=== PATIENT | female | born 1975 | race Hispanic/Latino ===

== ENCOUNTER 2017-03-31 05:25 | Inpatient (IN) | payer OTHER ==
--- NOTE | 2017-03-30 19:49 | HP ---
[address] [address] HISTORY AND PHYSICAL PATIENT: MIGUEL MOORE : 1975 MR#: [id number] ADMIT: 03/31/2017 JOB ID: [id number] The patient is a 41-year-old, G3, P2, AB zero woman followed prenatally at [facility], see record for details. She has now reached 39 weeks of gestation by day of admission. In setting of advanced maternal age, level two sonogram was obtained and demonstrated no anatomic abnormalities, and patient declined genetic screening. Note, that in setting of prior section, the patient weighed risks and benefits of trial of labor versus section and she definitively requested delivery. Note that placenta was noted to be in anterior position, although by best estimation, uterine scar is felt to be likely inferior to the caudal margin of the placenta. There was no sonographic evidence for placental accreta or placenta previa. The patient has requested sterilization procedure at time of , desiring removal of tubes, if feasible, although realizing that only tubal ligation might be possible depending on anatomy. She has gained 31 pounds during the , although counseled to have little weight gain, and BMI is at around 50. I have written with and discussed this case with Patrick Guthrie, deputy director of finance, and at his recommendation, patient had in person consultation with the [facility] anesthesiologist, who cleared her for surgery. She has previously had surgery to [facility] and done well. The patient understands the risks of to include bleeding, infection, injury to the urinary tract and bowel, anesthetic risks, deep venous thrombosis and pulmonary embolus, incisional problems including infection and breakdown. There will be postoperative pain, etc. She has had all of her questions answered, and no guarantees have been stated or implied, and she has signed informed consent for surgery. She realizes she is at increased risk for complications in the setting of morbid obesity. She also has requested at the time of section that bilateral tubal excision be accomplished (i.e. removal of both tubes, if feasible, although bilateral tubal ligation will be acceptable sterilization procedure for tying of tubes if excision is not possible). She has realized that tubal ligation could fail and intrauterine or ectopic could result, although uncommon. She has had her questions answered and she realizes there is no guarantees that may be made. Informed consent has been signed for potential tubal surgeries as well as section. In summary, then, the patient will be admitted to [facility] on March 31, 2017, on which day, she will undergo repeat section plus bilateral salpingectomy (or bilateral tubal ligation if needed) under planned spinal anesthesia. PHYSICAL EXAMINATION: On admission, last weight and blood pressure in the office 280 pounds (BMI of approximately 50) and 110/70, respectively. Neck: No thyromegaly. Lungs: Clear to auscultation and percussion. Heart: Regular in rate and rhythm. Abdomen: Fundal height has been large for gestational age. Positive heartbeat. Pelvic examination: No recent cervical exam. DIAGNOSTIC DATA: Preoperative CBC result not available at the time of this dictation. IMPRESSION: 1. A 39-week gestation on admission. 2. Reproductive history--prior vaginal delivery and then section, with patient requesting repeat section for delivery of this . 3. Requesting bilateral salpingectomy (or tubal ligation) for sterilization purposes. 4. Morbid obesity, although no hypertension and no gestational diabetes. 5. Advanced maternal age, note that twice weekly nonstress tests have been reactive. 6. Positive group B Strep test. 7. Prior macrosomia. 8. Anterior placenta, with caudal margin felt to likely be cephalad to old scar. Note, no evidence for placenta accreta on ultrasound. 9. Rh positive status, rubella immune, up to date with Tdap. 10. Prior Mirena IUD use. 11. History of suspected chronic anovulation/PCOS, with periods every 3-6 months when not on control pill or Mirena IUD as reported in the past. Note, past progestin or progesterone use induced cycles that time. 12. Fibromyalgia history, used medications in the past. 13. Past-reported genuine stress urinary incontinence. 14. Cystitis history. 15. Asthma history, particularly associated with environmental allergies, with past-reported use of allergy medications including Claritin, Advair and Flonase. 16, SOCIAL HISTORY: a. . b. Two children, born in 1995 and 2004. c. Adopted a daughter (niece) whose mother was the patient's sister, who . d. Patient's mother had a stroke and during the 2004 . 17. FAMILY HISTORY: Hypertension (mother), diabetes (mother), stroke (mother), breast cancer (paternal aunt), twins (brother has twins), asthma (sister and her two kids have). PLAN: 1. The patient will be admitted to [facility] on March, on which day she will undergo repeat section plus bilateral tubal excision for tubal ligation. 2. Preoperative lab work will be reviewed prior to surgery. 3. Anesthesiologist has seen the patient ahead of time in consultation in light of morbid obesity and has cleared patient for surgery. Bryce Renteria MD [facility]
[~2017-03-31] VITALS: Ht 165.1 cm; Wt 128.8 kg
[2017-03-31] MEDS ORDERED: Carboprost 250 mCg/mL Inj IM ONE (05:26)
[2017-03-31] MEDS ORDERED: Lactated Ringer's 1,000 ML IV SCH (05:43)
[2017-03-31] MEDS ORDERED: Methylergonovine 0.2 mg/mL Inj IM PRN ×2 (05:45→07:50)
[2017-03-31] MEDS ORDERED: Sodium Citrate-Citric Acid 15 mL Solution PO SCH (05:45)
[2017-03-31] MEDS ORDERED: Hemorrhage Kit, Post Partum XX ONE ×2 (05:45→07:50)
[2017-03-31] MEDS ORDERED: Carboprost 250 mCg/mL Inj IM PRN ×2 (05:45→07:50)
[2017-03-31] MEDS ORDERED: Oxytocin 10 Unit/mL Inj IM PRN ×2 (05:45→07:50)
[2017-03-31] MEDS ORDERED: CeFAZolin Inj 3 GM in IV Premix 1 EACH IV SCH ×3 (05:50→08:30)
[2017-03-31 06:21] LABS: Mean Corpuscular Hemoglobin 31.3 pg (27.0-35.0); Mean Corpuscular Volume 94.5 fL (81-100)
--- NOTE | 2017-03-31 07:21 | PCM.HPANE ---
Patient Data Surgeon Admitting Provider:Bryce Renteria MD Attending Provider:Bryce Renteria MD Primary Care Physician:Kannan Naidu MD Other Provider:Mili Laurent Anesthesia Reason for Visit Repeat REPEAT Ht/WT & BMI Body Mass Index Allergies Coded Allergies: No Known Allergies (Verified , 10/11/04) Past Anesthesia History Anesthesia History: Denies:: Abnormal Airway, Anesthesia Reactions, Difficult Intubation Diabetes History Hx Diabetes?: No MRSA MRSA: No Medications Hypertension Medication: No Home Meds Incl Beta Katerine: No History History of ENT Problems?: No HEENT History: Denies:: Abnormal Airway Difficult Intubation Hearing Problem Denture Type: None Teeth Condition: Within Normal Limits Hx of Heart Problems?: No Cardiovascular History: Denies:: Valvular Heart Disease Hx of Respiratory Problem?: No Respiratory History: Denies:: Asthma COPD Chest Surgery Cough Dyspnea Emphysema Hemoptysis Oxygen Administration Pneumonia Pulmonary Embolism Tuberculosis Use of C-PAP Machine Use of Inhalers / NEBS Hx Neurologic Problems?: No Neurological History: Denies:: CVA Hx of GI Problems?: No Hx of Problems?: Yes Female Hx: Denies:: Currently Skin History: Denies:: History Skin Disorders? Pressure Ulcers Hx Musculoskeletal Problems?: No Hx of Psycho/Social Problems?: No Hx Surgeries?: No Hx Any Other Health Problems?: No Other History: Denies:: Cancer Endocrine Disease Hospitalization Thyroid Disease History Blood Transfusions: Denies:: Blood Transfuse Reaction Blood Transfusions Hx Diabetes: No Hx Alcohol Use: YesHx Substance Use: No Smoking Status: Never Smoker Stop/Bang KAVON Risk Assessment: Low Risk, <3 Yes Risk Assessment Category Category 1A: Patient has history of documented sleep apnea, and HAS NOT received any narcotic, sedative or anesthesia administration during this stay. Category 1B: Patient has history of documented sleep apnea, and HAS received any narcotic , sedative or anesthesia administration during this stay Category 2: Patient has SUSPECTED Obstructive Sleep Apnea, and HAS received any narcotic , sedative or anesthesia administration during this stay. Category 3: Patient has SUSPECTED Obstructive Sleep Apnea and HAS NOT received narcotic, sedative or anesthesia administration during this stay. Category 4: Outpatient in Procedural Areas with known sleep apnea or who screen positive for High Risk via the STOP/BANG questionnaire. Exam Exam General Appearance: Alert HEENT/AIRWAY: MP 1 Lungs: Clear to Auscultation Heart: Exam Unremarkable Meds/Labs/Diagnostics Labs Test 03/31/17 06:05 White Blood Count 8.1th/mm3 (3.8-10.1) Red Blood Count 4.03mil/mm3 (3.90-5.20) Hemoglobin 12.6g/dL (12.0-15.6) Hematocrit 38.1% (35.0-46.0) Mean Corpuscular Volume 94.5fL (81-100) Mean Corpuscular Hemoglobin 31.3pg (27.0-35.0) Mean Corpuscular Hemoglobin Concent 33.1% (32.0-37.0) Red Cell Distribution Width 14.0% (12.3-15.4) Platelet Count 153bil/L (150-400) Plan Impression Patient chart reviewed, patient interviewed and anesthestic plan with risks, benefits, and alternatives discussed, and informed consent obtained. NPO per Anesth. Guidelines: Yes ASA Physical Status: ASA1 Normal Healthy Anesthetic Plan: SAB Bene/Risks/Altern/Consents: Yes HP Complete Prior to Induction: Yes Barrett Toscano MD Mar 31, 2017 07:21
[2017-03-31] MEDS ORDERED: fentaNYL-PF 50 mCg/mL 2 mL Inj IVPUSH PRN (07:35)
[2017-03-31] MEDS ORDERED: EPHEDrine Sulfate 50 mg/mL Inj IVPUSH PRN (07:35)
[2017-03-31] MEDS ORDERED: Atropine 0.4 mg/mL Inj IV PRN (07:35)
[2017-03-31] MEDS: CeFAZolin Inj 3 GM in IV Premix 1 EACH IV SCH ×2 (07:40→16:50)
[2017-03-31] MEDS ORDERED: hydrOXYzine Pamoate 25 mg Capsule PO PRN (07:50)
[2017-03-31] MEDS ORDERED: TdaP Vaccine 0.5 mL Inj IM ONE (07:50)
[2017-03-31] MEDS ORDERED: Oxytocin 30 Units/500 mL LR 30 UNITS in IV Premix 1 EACH IV PRN (07:50)
[2017-03-31] MEDS ORDERED: Acetaminophen IV 1,000 MG in IV Premix 1 EACH IV PRN (07:50)
[2017-03-31] MEDS ORDERED: Influenza (Adult) Vaccine 0.5 mL Syringe IM ONE (07:50)
[2017-03-31] MEDS: Lactated Ringer's 1,000 ML IV SCH ×2 (07:50→15:50)
[2017-03-31] MEDS ORDERED: Sodium Chloride LOK Flush 10 mL Syringe IVFLUSH PRN (07:50)
[2017-03-31] MEDS ORDERED: LANOlin HPA 7 Gm Ointment TOPICAL PRN (07:50)
[2017-03-31] MEDS ORDERED: Measles-Mumps-Rubella Vaccine 0.5 mL Inj SUBQ ONE (07:50)
[2017-03-31] MEDS ORDERED: Phenylephrine/NS 100 mCg/mL 10 mL Syringe IVPUSH ONE (08:07)
[2017-03-31] MEDS ORDERED: Oxytocin 10 Unit/mL Inj ONE (08:07)
[2017-03-31] MEDS ORDERED: Ondansetron 2 mg/mL 2 mL Inj ONE (08:07)
[2017-03-31] MEDS ORDERED: Morphine PF 1 mg/mL 10 mL Inj ONE (08:07)
[2017-03-31] MEDS ORDERED: fentaNYL-PF 50 mCg/mL 2 mL Inj ONE (08:07)
[2017-03-31] MEDS ORDERED: CeFAZolin Inj 3 GM in IV Premix 1 EACH IV ONE (08:30)
--- NOTE | 2017-03-31 10:04 | PCM.ANEP1 ---
Post Anesthesia PACU Phase 1 Assessment Vital Signs hr 88 sat 95 bp 106/70 rr16 t36 Anesthetic Administered: SAB Level of Alertness: Awake, talking BAJWA's with Equal Strength: Yes Pain: Yes Nausea or Vomiting: No CV Function & Hydration Stable: Yes Airway Device: Lungs: Clear to Auscultation Dermatome Level: T10 (Umbilicus) PACU Phase 2 Assessment Complications: No Follow up Care: No Patient Instructions Provided: Yes Barrett Toscano MD Mar 31, 2017 10:03
[2017-04-01] MEDS: CeFAZolin Inj 3 GM in IV Premix 1 EACH IV SCH (00:57)
--- NOTE | 2017-04-01 01:10 | OP ---
[address] [address] OPERATIVE REPORT PATIENT: MIGUEL MOORE : 1975 MR#: [id number] ADMIT: 03/31/2017 JOB ID: [id number] DATE OF SURGERY: 03/31/2017 SURGEON: Bryce Renteria MD PIPE PRODUCTION WORKER: Rojelio Gatica MD ANESTHESIA: Spinal. PREOPERATIVE DIAGNOSIS(ES): 1. A 39 week . 2. Prior section, with patient request for scheduled repeat section. 3. Desires sterilization by tubal excision (versus tubal ligation). 4. Morbid obesity. 5. Positive group B strep status. POSTOPERATIVE DIAGNOSIS(ES): 1. A 39 week . 2. Prior section, with patient request for scheduled repeat section. 3. Desires sterilization by tubal excision (versus tubal ligation). 4. Morbid obesity. 5. Positive group B strep status. 6. Abdominal adhesions. PROCEDURES PERFORMED: 1. Repeat low transverse section. 2. Bilateral salpingectomy. 3. Adhesiolysis. FINDINGS AT SURGERY: Fetus was noted to be in vertex presentation and amniotic fluid was clear. Baby was active and crying on the operative field. Placenta was located anteriorly and down to the lower uterine segment. There was significant associated hypervascularity in the lower uterine segment. Blood loss during the case was about 750 cc, felt to be increased on the basis of the hypervascularity, although after massage, Pitocin, and Hemabate, uterus was remaining contracted well and there was no obvious internal bleeding occurring at any sites. Fallopian tubes and ovaries were normal in appearance. The patient had requested removal of fallopian tubes if feasible, and it was. At procedure's close, active, crying and vigorous baby had been delivered, uterus had been closed, fallopian tubes had been removed, and there was no obvious internal bleeding occurring at any site. It certainly is anticipated that mother and baby will do very well during the postoperative/ timeframe. Note that we will track maternal hemoglobin in light of significant bleeding briefly during the surgery, although very little at procedure's close. PROCEDURE: The patient was placed in supine position on the operating table after activation of spinal anesthesia. She was then repositioned in left lateral tilt position and Leigh catheter was placed, and abdomen was then prepped and draped in usual sterile manner. Appropriate anesthesia had demonstrated quality spinal, and appropriate time-out had been taken. Pfannenstiel incision was then made through lower abdominal skin, subcutaneous tissues and fascial layer. Rectus muscle was then from the overlying fascia using blunt and sharp dissection, and electrocautery was utilized throughout to effect complete hemostasis when needed. Rectus muscle was then in midline and the peritoneal cavity was carefully entered. There were some very significant adhesions encountered between the anterior abdominal wall, perineum and the mid to right-sided uterine fundus, lysed via sharp dissection and electrocautery. Bladder flap was then developed and the incision was made in the lower uterine segment until the amniotic sac was reached. This was then ruptured and clear fluid was recovered. Head was then directed to the uterine incision, followed by the shoulders, body and extremities. Baby was active and crying on the operative field. Umbilical cord was directly clamped and cut and baby was handed to the nurse for further management. There was no delay in cord clamping due to significant lower uterine segment incisional bleeding felt to be related to the anterior placenta with caudal edge at the lower uterine segment adjacent to incision. After cord blood was then obtained for routine studies, placenta with membranes was then massage from the uterus, intact. The uterus then contracted down more effectively, and uterine incision edges were not bleeding nearly so much. The uterine incision was closed in a running, locking manner using #1 chromic suture and hemostasis was noted to be complete. There was no bleeding occurring from the uterine incision and no visible blood in the urine. Attention was then directed to the adnexal regions where both fallopian tubes and ovaries were noted to be normal. Of course, fallopian tubes were lengthier and perhaps more hypervascular in relation to the , but it was felt that tubes could definitely be removed as consistent with patient's wishes. Thus, left fallopian tube was first grasped with Diogenes clamps, the mesosalpinx opened with electrocautery where feasible, and then Dana clamps placed across the proximal fallopian tube segment at its juncture with the uterus, then from mid tubal vasculature within the mesosalpinx, and then distal tubal associated vasculature/attachments were then clamped and divided, and thus fallopian tube was removed in its entirety. The residual pedicles were suture ligated with free ties of large chromic, although the proximal tubal stump and its attachment site with the uterus was doubly tied with #1 chromic plus 2-0 silk suture. Complete hemostasis was noted on the left side. The same procedure was then performed on the right, with excision of right fallopian tube accomplished, and hemostasis also noted to be complete. The cul-de-sac area was then irrigated and then suctioned of blood, clots and fluid, and final adnexal region inspection was accomplished without any bleeding noted. Ovaries remained. Uterus was then returned to the abdominal cavity and gutter areas were cleared of blood, clots and fluid. Final uterine wall incision demonstrated no bleeding and there was no bleeding in the bladder area and urine was reported to be clear. Instrument, needle and sponge counts were all found to be correct. Rectus muscle was then drawn together across the midline using interrupted stitches of #1 chromic suture, and the subfascial plane was inspected and light cautery applied where needed. Fascial layer was then closed in a running manner using #1 PDS, and subcu tissues were irrigated extensively and cautery applied where needed. The skin incision was then closed with vincent. Pressure dressing was applied. Uterus was expressed of blood and clots. Procedure was complete. Final instrument, needle and sponge counts were all once again noted to be complete and correct. The patient was taken to her room for recovery. COMPLICATIONS: None. PROGNOSIS: Good for surgical recovery. ESTIMATED BLOOD LOSS: 750 cc. NOTE: That surgery was challenging in light of the morbid obesity, as well as the adhesions encountered. Procedures went well, although everything took significantly longer, perhaps twice the length of typical section. JUAN
[2017-04-01] MEDS: oxyCODONE-Acetamin 5-325 mg Tablet PO PRN ×4 (04:35→20:52)
[2017-04-01 07:12] LABS: Mean Corpuscular Hemoglobin 31.9 pg (27.0-35.0)
[2017-04-02] MEDS: oxyCODONE-Acetamin 5-325 mg Tablet PO PRN ×2 (03:30→09:24)
--- NOTE | 2017-04-02 06:09 | PCM.DIOB ---
Obstetrical Disch Instruction Dates of Hospitalization Date of Hospital Admission Mar 31, 2017 at 05:25 Providers Admitting Physician: Bryce Renteria MD Primary Care Physician: Kannan Naidu MD Attending Physician: Bryce Renteria MD Discharge Diagnosis Problems: (1) Status: Acute ICD Code: Z33.1 Diet Discharge Diet: No restrictions Activity Discharge Activity-General: Pelvic Rest for 6 weeks, No lifting >10 pounds for 4-6 weeks Dressing and Incisional Care Dressing Care: Allow Steri Stripes to fall off Hygiene: May shower, DO NOT soak incision under water Follow Up Plan Follow-up appointment: Weeks (Follow up Appointment with WC at 2 weeks for incision check + Appointment with Dr. Renteria at 6 weeks for / postoperative checkup.) Call your provider for: Fever or Chills, Shortness of breath, Heavy vaginal bleeding, Red painful breasts Bryce Renteria MD Apr 02, 2017 06:08
[2017-04-02] MEDS ORDERED: OXYC1TAB24 PO (06:10)
[2017-04-02] MEDS ORDERED: IBUP-1827 PO (06:10)
[2017-04-02] MEDS ORDERED: DOCU-41 PO (06:10)
--- NOTE | 2017-04-02 06:11 | PROG NOTE ---
[address] [address] PROGRESS NOTE PATIENT: MIGUEL MOORE : 1975 MR#: [id number] ADMIT: 03/31/2017 JOB ID: [id number] DATE: 04/01/2017 TIME: 2200 hours. The patient underwent repeat low transverse section plus bilateral tubal excision on March 31, 2017. During the timeframe, patient is doing well with stable vitals, remaining afebrile, reasonable bleeding and pain management, ambulating and voiding, and handling baby well. She has had no leg pain or shortness of breath. She has had no incisional problem. She is interested in going home on the second postoperative/ day, i.e. tomorrow. PLAN: Continue postoperative/ care.
--- NOTE | 2017-04-02 08:33 | DIS ---
[address] [address] DISCHARGE SUMMARY PATIENT: MIGUEL MOORE : 1975 MR#: [id number] ADMIT: 03/31/2017 JOB ID: [id number] DIS: DATE OF DISCHARGE: 04/02/2017 DISCHARGE DIAGNOSES: 1. A 39 week , delivered. 2. Status post repeat low transverse section. 3. Status post bilateral salpingectomy for sterilization at patient's request. 4. Morbid obesity. 5. Positive group B streptococcus. PROCEDURE PERFORMED DURING HOSPITALIZATION: 1. Repeat low transverse section. 2. Bilateral salpingectomy. 3. Adhesiolysis. 4. Spinal anesthesia. HOSPITAL COURSE: The patient is admitted to [facility] on March 31, 2017 upon which day she underwent procedures as described. The patient did well during the postoperative/ timeframe with stable vitals, afebrile, reasonable bleeding, ambulating, voiding, without leg pain or shortness of breath, eating and moving gas, and handling baby well. She was not dizzy. hemoglobin was acceptable. Patient is interested in discharge to home on the second postoperative/ day. DISCHARGE PROGRAM: Patient will call p.r.n., yet otherwise she will follow up at two weeks with nurse for incision check and at six weeks for full /postoperative checkup. She will observe pelvic rest and not do any heavy lifting for six weeks. DISCHARGE MEDICATIONS: Include: 1. Percocet. 2. Ibuprofen. 3. Colace. Prescriptions written. She will also continue to use vitamins that she has a supply of at home while nursing.
[2017-04-02 11:00] VITALS: BP 107/58; PULSE 91; RESP 18
--- NOTE | 2017-04-03 09:55 | PATH ---
SURGICAL PATHOLOGY Attending Physician:Bryce Renteria M.D CASE STATUS: Signed Out PATIENT NAME: MIGUEL MOORE PID: [id number] : 1975 DATE COLLECTED:03/31/2017 20:31 SPECIMEN: 1: Fallopian Tube, Sterilization 2: Fallopian Tube, Sterilization CLINICAL HISTORY: ELECTIVE REPEAT SECTION WITH STERILIZATION REQUESTED, 41 YEAR OLD 39WEEK PRIOR SECTION. 1). RIGHT FALLOPIAN TUBE 2). LEFT FALLOPIAN TUBE FINAL DIAGNOSIS: 1. Right Fallopian Tube, Tubal Ligation: Complete cross-section of fallopian tube. Paratubal cyst. Negative for neoplasm. 2. Left Fallopian Tube, Tubal Ligation: Complete cross-section of fallopian tube. Paratubal cyst. Negative for neoplasm. ICD10: Z30.2 GROSS DESCRIPTION: The specimen is received in two formalin filled containers labeled with the patient's name. 1). The specimen is labeled "R. fallopian tube" and consists of 7.0 x 3.0 x 2.0 CM segment of fallopian tube. There is a 2.5 x 2.5 x 2.0 CM possible fluid filled area. 4 brewery representative sections are submitted in cassette 1A. 2). The specimen is labeled "L. fallopian tube" and consists of a 6.0 x 1.0 x 0.6 CM segment of fallopian tube. The specimen is inked blue. 4 brewery representative sections are submitted in cassette 2A. 03/31/2017MD ICD-9 CODES: CPT CODES: 1: 03257 2: 96963 Electronically Signed Out Samuel Gonzalez MD [facility] Pathology [facility] [address], [place] [address] Technical component performed at [facility], [facility] [address], [place], [address]
== END 2017-04-02 14:05 | disposition home or self-care (01) | DRG 765 ==
LOC: FBC 05:25 → EDSTATUS 07:15
PROVIDERS: ADMIT Obstetrics & Gynecology; ATTEND Obstetrics & Gynecology
PROC: 0UT70ZZ Resection of Bilateral Fallopian Tubes, Open Approach (ICD-10-PCS; 2017-03-31)
PROC: 0DNW0ZZ Release Peritoneum, Open Approach (ICD-10-PCS; 2017-03-31)
PROC: 10D00Z1 Extraction of Products of Conception, Low, Open Approach (ICD-10-PCS; principal; 2017-03-31 07:15)
DX: O34.211 Maternal care for low transverse scar from previous cesarean delivery (principal); Z68.42 Body mass index [BMI] 45.0-49.9, adult; Z3A.39 39 weeks gestation of pregnancy; O26.03 Excessive weight gain in pregnancy, third trimester; E66.01 Morbid (severe) obesity due to excess calories; O99.824 Streptococcus B carrier state complicating childbirth; Z37.0 Single live birth; O99.89 Other specified diseases and conditions complicating pregnancy, childbirth and the puerperium; N73.6 Female pelvic peritoneal adhesions (postinfective); Z30.2 Encounter for sterilization